=== PATIENT | female | born 2000 | race Hispanic/Latino ===

== ENCOUNTER 2025-05-24 21:29 | Emergency (ER) | payer SELFPAY ==
[~2025-05-24] VITALS: Ht 147.3 cm; Wt 86.2 kg
[2025-05-24 21:53] LABS: APPEARANCE,URINE CLOUDY (CLEAR); GLUCOSE, URINE (UA) NEGATIVE (NEGATIVE); LEUKOCYTE ESTERASE ,URINE 25 Leu/uL (NEGATIVE); NITRATE,URINE 2+ (NEGATIVE); OCCULT BLOOD,URINE NEGATIVE (NEGATIVE)
[2025-05-24 21:55] LABS: ADD UA MICROSCOPIC YES
[2025-05-24 21:57] LABS: SQUAMOUS EPITHELIAL CELL,UR FEW /HPF (0-2)
[2025-05-24] MEDS: FAMOTIDINE 20MG VIAL IV ONE (21:57)
[2025-05-24 21:58] LABS: IMMATURE GRANULOCYTE ABSOLUTE 0.02 K/uL (0-1); NUCLEATED RED BLOOD CELLS 0.0 % (0.0-0.19); PLATELET COUNT (AUTO) 162 K/uL (130-400); RED BLOOD CELL COUNT(AUTO) 4.62 MIL/uL (4.00-5.50); RED CELL DISTRIBUTION WIDTH 12.8 % (11.0-15.5); WHITE BLOOD COUNT (AUTO) 9.7 K/uL (4.8-10.8)
[2025-05-24 22:01] LABS: HCG,QUALITATIVE URINE NEGATIVE (NEGATIVE)
[2025-05-24 22:10] LABS: CREATININE 0.6 mg/dL (0.5-1.0); GLOMERULAR FILTR. RATE CALC 128.0 mL/min (>90); GLUCOSE,RANDOM 132.0 mg/dL (70-105); INR 0.97 (0.85-1.15); SODIUM SERUM 140.0 mmol/L (136-145); UREA NITROGEN, BLOOD 11.0 mg/dL (7-18)
[2025-05-24 22:14] LABS: ASPARTATE AMINOTRANSFERASE 22.0 U/L (10-37); TOTAL PROTEIN, SERUM 7.7 g/dL (6.0-8.3)
[2025-05-24] MEDS: LIDOCAINE HCL 2% VISCOUS 15 ML UDCUP PO ONE (23:55)
[2025-05-24] MEDS: MAG/ALUM/SIMETH 30 ML UDCUP PO ONE (23:55)
[2025-05-25] MEDS ORDERED: ONDA-243 PO (00:10)
[2025-05-25] MEDS ORDERED: FAMO-136 PO (00:10)
--- NOTE | 2025-05-25 00:12 | ERN ---
General Chief Complaint: Abdominal Pain Stated Complaint: C/O EPIGASTRIC PAIN W/BURNING SENSATION Time Seen by MD: 21:33 Time Seen by Midlevel: 21:33 Source: patient History of Present Illness Initial Comments Patient is a 25-year-old female presenting to the emergency department with midepigastric abdominal pain that started at 7:00 p.m. today. No other symptoms reported Allergies: Coded Allergies: No Known Allergies (Unverified Allergy, Unknown, 05/24/25) Past Medical History Past Medical History: No Pertinent History Past Surgical History: None Female( History) LMP: May 16, 2025 ROS Dictation CONSTITUTIONAL: Negative except for HPI HEAD/FACE: Negative except for HPI EENT: Negative except for HPI RESPIRATORY: Negative except for HPI GASTROINTESTINAL/ABDOMINAL: Negative except for HPI GENITOURINARY: Negative except for HPI MUSCULOSKELETAL: Negative except for HPI INTEGUMENTARY: Negative except for HPI NEUROLOGICAL/PSYCH: Negative except for HPI HEMATOLOGIC/LYMPHATIC: Negative except for HPI All Systems Negative, Except as noted above. 13 point review of systems assessed and all negative except for above. Physical Exam Physical Exam Dictation Vital Signs reviewed General Appearance: Alert, oriented x 3, no acute distress, well developed, nourished. Head and Face: non-traumatic. Eyes: PERRL, pink conjunctivas, eyelid no trauma, anterior chamber with arcus senilis. Ears: Pinnas intact and no signs of trauma or erythema ear canals clear and no discharge TM no erythema Nose: No discharge, no bleeding. Oropharynx: Mouth normal, tongue pink, pharynx clear,no erythema, tonsils no exudates, no abscesses noted, mucous membrane moist Neck: Supple, non-tender, no thyromegaly, no masses, no JVD, no bruits Breast:Deferred Chest:No tenderness, no crepitus, no paradoxical movement, no retractions Lungs:Clear, well-ventilated, symmetric, no rales, no wheezing, no rhonchi, no stridor, good breath sounds bilaterally Heart: Regular rate, regular rhythm, no murmur, no gallops Vascular: no peripheral edema, Abdomen: Soft, positive bowel sounds, nondistended, no guarding, nontender, no rebound, no masses no hepatomegaly, no splenomegaly, no Farah's sign, no hernias. Rectal: Deferred Genital: Deferred Neurological: Normal speech, motor function intact, sensory function intact Musculoskeletal: Neck nontender, full range of motion, back nontender, full range of motion, Extremities: nontender, full range of motion Skin: Color pink, dry, no turgor, no rash, no lacerations, no abrasions, no contusions. Lymphatic: Deferred Results Laboratory and Microbiology Lab and Micro Result Laboratory Tests Test 05/24/25 21:39 05/24/25 21:44 Urine Color YELLOW (YELLOW) Urine Appearance CLOUDY (CLEAR) H Urine pH 7.0 (5.0-8.0) Urine Specific [place] 1.027 (1.001-1.031) Urine Protein 10 mg/dL (NEGATIVE) H Urine Glucose (UA) NEGATIVE mg/dL (NEGATIVE) Urine Ketones NEGATIVE mg/dL (NEGATIVE) Urine Occult Blood NEGATIVE (NEGATIVE) Urine Nitrate 2+ (NEGATIVE) H Urine Bilirubin NEGATIVE mg/dL (NEGATIVE) Urine Urobilinogen 3 mg/dL (0.2-1.0) H Urine Leukocyte Esterase 25 Timothy/uL (NEGATIVE) H Urine RBC 2-5 /HPF (0-1) H Urine WBC 6-10 /HPF (0-1) H Urine Squamous Epithelial Cells FEW /HPF (0-2) Urine Amorphous Crystals (Auto) RARE /LPF (None Seen) Urine Bacteria FEW /HPF (None Seen) Urine HCG, Qualitative NEGATIVE (NEGATIVE) White Blood Count 9.7 K/uL (4.8-10.8) Red Blood Count 4.62 MIL/uL (4.00-5.50) Hemoglobin 14.0 g/dL (12.0-16.0) Hematocrit 41.1 % (36-48) Mean Corpuscular Volume 89.0 fL (79-99) Mean Corpuscular Hemoglobin 30.3 pg (27.0-33.0) Mean Corpuscular Hemoglobin Concent 34.1 g/dL (32.0-36.0) Red Cell Distribution Width 12.8 % (11.0-15.5) Platelet Count 162 K/uL (130-400) Mean Platelet Volume 10.4 fL (7.5-10.5) Immature Granulocyte % (Auto) 0.2 % (0-1) Neutrophils (%) (Auto) 80.0 % (40.0-77.0) H Lymphocytes (%) (Auto) 15.6 % (21.0-51.0) L Monocytes (%) (Auto) 3.8 % (3.0-13.0) Eosinophils (%) (Auto) 0.1 % (0.0-8.0) Basophils (%) (Auto) 0.3 % (0.0-5.0) Neutrophils # (Auto) 7.8 K/uL (1.8-7.7) H Lymphocytes # (Auto) 1.5 K/uL (1.0-4.8) Monocytes # (Auto) 0.4 K/uL (0.1-1.0) Eosinophils # (Auto) 0.01 K/uL (0.00-0.70) Basophils # (Auto) 0.03 K/uL (0.00-0.20) Absolute Immature Granulocyte (auto 0.02 K/uL (0-1) Nucleated Red Blood Cells 0.0 % (0.0-0.19) Prothrombin Time 10.3 SEC (9.6-11.6) Prothromb Time International Ratio 0.97 (0.85-1.15) Activated Partial Thromboplast Time 25.4 SEC (26.3-35.5) L Sodium Level 140 mmol/L (136-145) Potassium Level 4.1 mmol/L (3.5-5.1) Chloride Level 106 mmol/L (101-111) Carbon Dioxide Level 25 mmol/L (21-32) Blood Urea Nitrogen 11 mg/dL (7-18) Creatinine 0.6 mg/dL (0.5-1.0) Glomerular Filtration Rate Calc 128 mL/min (>90) Random Glucose 132 mg/dL (70-105) H Lactic Acid Level 1.7 mmol/L (0.8-2.5) Total Calcium 8.8 mg/dL (8.5-10.1) Total Bilirubin 0.5 mg/dL (0.2-1.0) Direct Bilirubin 0.1 mg/dL (0.0-0.3) Aspartate Amino Transf (AST/SGOT) 22 U/L (10-37) Alanine Aminotransferase (ALT/SGPT) 14 U/L (12-78) Alkaline Phosphatase 86 U/L (50-136) Total Protein 7.7 g/dL (6.0-8.3) Albumin 4.1 g/dL (3.5-5.0) Lipase 37 U/L (16-77) Procalcitonin < 0.05 ng/mL (0.05-0.5) L Labs Reviewed?: Yes MDM MDM: Differential diagnosis: Pancreatitis, gastritis, gastroenteritis There are no social concerns with this patient. Prescription drug management Prescriptions will include: Zofran, Pepcid Medical management and examination interpretation discussions were had by me with other qualified healthcare professionals as indicated for the patient's care. ED Course Orders Procedure Category Date Status Time ,Urine Test LAB 05/24/25 Complete 21:38 Urinalysis Profile LAB 05/24/25 Complete 21:38 Cbc With Differential LAB 05/24/25 Complete 21:40 Basic Metabolic Panel LAB 05/24/25 Complete 21:40 Hepatic Function Panel LAB 05/24/25 Complete 21:40 Lactic Acid LAB 05/24/25 Complete 21:40 Lipase LAB 05/24/25 Complete 21:40 Procalcitonin LAB 05/24/25 Complete 21:40 Pt And Ptt LAB 05/24/25 Complete 21:40 Ondansetron 4mg Inj PHA 05/24/25 Complete (Zofran 4mg Inj) 22:00 Morphine 2mg Syg PHA 05/24/25 Complete (Morphine 2mg Syg) 22:00 Famotidine 20mg Vial PHA 05/24/25 Complete (Pepcid 20mg Vial) 22:00 Culture Urine SAQIB 05/24/25 In Process 21:56 Ceftriaxone 1g Vial PHA 05/24/25 Complete (Rocephine 1g Inj) 23:30 Mag/Alum/Simeth 30ml PHA 05/25/25 Complete (Maalox Plus 30ml) 00:00 Lidocaine Hcl 2% PHA 05/25/25 Complete Viscous (Lidocaine Hcl 00:00 Current Medications Medications (Trade) Dose Ordered Sig/Blanche Route PRN Reason Start Time Stop Time Status Last Admin Dose Admin Al Hydroxide/Mg Hydroxide (MAALox PLUS 30ML) 30 ml ONCE ONCE PO 05/25/25 00:00 05/25/25 00:01 DC 05/24/25 23:55 Ceftriaxone Sodium (ROCEphine 1G INJ) 1 gm ONCE ONCE IVPB 05/24/25 23:30 05/24/25 23:31 DC 05/24/25 23:55 Famotidine (Pepcid 20mg Vial) 20 mg ONCE ONCE IV 05/24/25 22:00 05/24/25 22:01 DC 05/24/25 21:57 Lidocaine HCl (Lidocaine HCl 2% Viscous) 10 ml ONCE ONCE PO 05/25/25 00:00 05/25/25 00:01 DC 05/24/25 23:55 Morphine Sulfate (morPHINE 2MG SYG) 2 mg ONCE ONCE IVP 05/24/25 22:00 05/24/25 22:01 DC 05/24/25 22:07 Ondansetron HCl (zoFRAN 4MG INJ) 4 mg ONCE ONCE IVP 05/24/25 22:00 05/24/25 22:01 DC 05/24/25 21:57 Vital Signs Date Time Temp Pulse Resp B/P (MAP) Pulse Ox O2 Delivery O2 Flow Rate FiO2 05/24/25 21:40 97.5 76 18 104/65 98 Room Air* 0 21 05/24/25 21:31 97.3 76 20 106/66 99 DX & DISP Disposition: Discharge Departure Impression: Primary Impression: Gastritis Condition: Stable Scripts Famotidine (Pepcid) 20 Mg Tablet 1 TAB PO BID for 30 Days, #60 TAB 0 Refills Prov: CLAUDETTE SEGURA [facility] 05/25/25 Ondansetron (Ondansetron Odt) 4 Mg Tab.rapdis 4 MG PO BID for 7 Days, #14 TAB Prov: CLAUDETTE SEGURA [facility] 05/25/25 Additional Instructions: Your blood work today is unremarkable. Your CBC shows a normal white blood cell count which rules out an infection. Your electrolytes are normal. Your kidney function is normal. Your liver function tests are normal. Your lipase is normal which rules out pancreatitis. Your urinalysis does show evidence of infection. You were given antibiotics in the emergency department. Your symptoms may be related to gastritis. You will need to follow up with your primary care doctor for a possible referral to GI specialist if your symptoms persist. Referrals: SELF,REFERRAL (PCP) Time of Disposition: 00:10 I have reviewed the case, and I agree with, Diagnosis and Plan I performed the substantive portion of the visit. I have reviewed and personally made and approve the management plan that is documented in the note by myself or the NORMAN. I acknowledge for responsibility for the patient's man agement plan. CLAUDETTE SEGURA May 25, 2025 00:12
[2025-05-25 00:30] VITALS: BP 110/68; PULSE 72; RESP 16; TEMP 97.9; O2SAT 99
[2025-05-25] MEDS ORDERED: MACR100 PO (00:32)
== END 2025-05-25 00:35 | disposition home or self-care (01) ==
LOC: EDH 21:29
DX: K29.70 Gastritis, unspecified, without bleeding (principal)
CPT/HCPCS: 99284; 96374; 96375; 80076; 80048; 83690; 85025; 85610; 85730; 87086; 83605; 81001; 81025; 36415; 84145; J1308; J2270; J0696; J2405